=== PATIENT | female | born 1985 | race Two or more races ===

== ENCOUNTER → 2018-07-07 | Outpatient (CLI) | payer OTHER ==
--- NOTE | 2018-07-08 08:38 | RAD ---
Obstetrical ultrasound, 07/07/2018: HISTORY: size/date discrepancy There is a single intrauterine fetus in a cephalic orientation. The biparietal diameter measures 5.4 cm compatible with a gestational age of 22-23 weeks. This corresponds well to the other measurements and yields a sonographic EDC of 11/06/2018. Normal activity is evident. There is a four-chamber heart with a heart rate of 144 bpm. Fluid is identified in the bladder and stomach. The visualized portions of the kidneys and spine are unremarkable. A three-vessel umbilical cord is evident with a normal cord insertion site. A normal amount of amniotic fluid is present. The placenta lies anteriorly with no evidence of placenta previa. The cervix was not optimally visualized, however, its length was estimated at 3.7 cm. IMPRESSION: Single viable intrauterine fetus of 22-23 weeks gestational age as described above. Electronically signed by: Wander Escalante MD (07/08/2018 8:35 AM) [facility]
== END | disposition home or self-care (01) ==
LOC: US 16:08
PROVIDERS: ATTEND Obstetrics & Gynecology
DX: O26.842 Uterine size-date discrepancy, second trimester (principal); Z3A.23 23 weeks gestation of pregnancy
CPT/HCPCS: 76805

== ENCOUNTER → 2018-09-30 | Outpatient (CLI) | payer OTHER ==
[2018-09-30 12:38] LABS: BASO % 0 % (0-3); EOS # 0.1 x10^3/uL (0.0-0.7); EOS % 1 % (0-3); HEMOGLOBIN 11.3 g/dL (12.0-15.5); LYMPH # 1.3 x10^3/uL (1.0-4.8); LYMPH % 11 % (24-48); MEAN CORPUSCULAR HEMOGLOBIN 31 pg (25-35); MEAN CORPUSCULAR HGB CONC 33 g/dL (31-37); MEAN CORPUSCULAR VOLUME 94 fL (79-100); MONO # 0.8 x10^3/uL (0.0-1.1); MONO % 7 % (0-9); NEUT # 9.3 x10^3uL (1.8-7.7); NEUT % 81 % (31-73); PLATELET COUNT 341 x10^3/uL (140-400); RED BLOOD COUNT 3.64 x10^6/uL (3.50-5.40); RED CELL DISTRIBUTION WIDTH 12.7 % (11.5-14.5); WHITE BLOOD COUNT 11.6 x10^3/uL (4.0-11.0)
== END | disposition home or self-care (01) ==
LOC: LAB 11:11
PROVIDERS: ATTEND Obstetrics & Gynecology
DX: O09.93 Supervision of high risk pregnancy, unspecified, third trimester (principal); Z3A.35 35 weeks gestation of pregnancy
CPT/HCPCS: 36415; 82950; 85025